=== PATIENT | male | born 1975 | race Asian ===

== ENCOUNTER 2016-08-12 14:15 | Emergency (ER) | payer OTHER ==
[~2016-08-12] VITALS: Ht 175.3 cm; Wt 70.3 kg
[2016-08-12] MEDS ORDERED: HYDROCODONE/APAP 5/325MG 1 EACH TABLET PO ONE (15:00)
[2016-08-12] MEDS ORDERED: IBUPROFEN 600 MG TABLET PO ONE ×2 (15:00→15:22)
[2016-08-12] MEDS ORDERED: HYDROCODONE/APAP 5/325MG 1 EACH TABLET ONE (15:22)
[2016-08-12 16:07] VITALS: BP 118/66
== END 2016-08-12 16:08 | disposition home or self-care (01) ==
LOC: ER 14:17
DX: S62.521A Displaced fracture of distal phalanx of right thumb, initial encounter for closed fracture (principal); M19.012 Primary osteoarthritis, left shoulder; F17.200 Nicotine dependence, unspecified, uncomplicated; Y08.89XA Assault by other specified means, initial encounter; Y93.89 Activity, other specified; Y92.89 Other specified places as the place of occurrence of the external cause; Y99.8 Other external cause status
CPT/HCPCS: 29125; 73030; 73130; 99284; A4606; Z7610

== ENCOUNTER 2017-03-08 05:42 | Emergency (ER) | payer MEDICAID, OTHER ==
[~2017-03-08] VITALS: Ht 175.3 cm; Wt 68.0 kg
[2017-03-08 06:05] VITALS: BP 140/78
--- NOTE | 2017-03-08 06:30 | NUR ---
AT BEDSIDE FOR I&D
== END 2017-03-08 06:49 | disposition home or self-care (01) ==
LOC: ER 05:50
DX: L02.01 Cutaneous abscess of face (principal)
CPT/HCPCS: A4606; A6402; A6403; J3490; Z7610